=== PATIENT | male | born 1950 | race Caucasian/White ===

== ENCOUNTER 2017-11-17 21:56 | Emergency (ER) | payer MEDICARE ==
--- NOTE | 2017-11-18 07:26 | RAD ---
RIGHT ANKLE 3 VIEWS: DATE: 11/17/17. FINDINGS: There appears to have been an old fracture of the tip of the lateral malleolus that is partially heal ed. No acute fracture was seen. The articular surfaces of the ankle joint seem smooth. Extensive a rterial calcifications are present. IMPRESSION: Old changes, but no acute findings. POS: HOME
== END 2017-11-18 00:35 | disposition home or self-care (01) ==
LOC: BURERS 21:56
DX: M77.51 Other enthesopathy of right foot and ankle (principal); E11.9 Type 2 diabetes mellitus without complications; I10 Essential (primary) hypertension; E03.9 Hypothyroidism, unspecified; N40.0 Benign prostatic hyperplasia without lower urinary tract symptoms; Z79.899 Other long term (current) drug therapy; Z79.4 Long term (current) use of insulin

== ENCOUNTER 2018-03-03 10:12 | Emergency (ER) | payer MEDICARE ==
[2018-03-03] MEDS ORDERED: hydrOXYzine 25 MG TAB ONE (11:01)
[2018-03-03] MEDS ORDERED: Famotidine 20 MG TAB ONE (11:01)
== END 2018-03-03 11:13 | disposition home or self-care (01) ==
LOC: BURERS 10:12
DX: T63.421A Toxic effect of venom of ants, accidental (unintentional), initial encounter (principal); E11.9 Type 2 diabetes mellitus without complications; I10 Essential (primary) hypertension; E03.9 Hypothyroidism, unspecified; N40.0 Benign prostatic hyperplasia without lower urinary tract symptoms; F32.9 Major depressive disorder, single episode, unspecified; Z79.899 Other long term (current) drug therapy; Z79.4 Long term (current) use of insulin
CPT/HCPCS: 99282

== ENCOUNTER 2018-06-18 09:25 | Outpatient (CLI) | payer MEDICARE ==
--- NOTE | 2018-06-18 13:46 | RAD ---
RIGHT KNEE FOUR VIEWS: Date: 06-18-18 FINDINGS: No acute fracture or large joint effusion was seen. There is significant arthritic changes present co nsisting of mild medial joint space narrowing and large osteophytes. At least two of the images raise the question of a small loose body in the joint. Patellofemoral osteophytes are present as well. The re is faint arterial calcification in the nearby vessels. IMPRESSION: Moderate osteoarthritis. Possible small loose body in joint. POS: [facility]
--- NOTE | 2018-06-18 13:47 | RAD ---
LEFT KNEE FOUR VIEWS: Date: 06-18-18 Comparison: Views of the right knee. FINDINGS: While there are some arthritic changes on this side, they are not nearly as profound as the right kne e. Small osteophytes are seen. No fracture or joint effusion was evident. Faint arterial calcificatio ns were seen. IMPRESSION: Mild degenerative change. POS: [facility]
== END 2018-06-18 09:26 | disposition home or self-care (01) ==
LOC: BURRAD 09:25
PROVIDERS: ATTEND Family Medicine
DX: M25.561 Pain in right knee (principal); M25.562 Pain in left knee; M17.0 Bilateral primary osteoarthritis of knee

== ENCOUNTER 2019-05-02 10:18 | Emergency (ER) | payer MEDICARE ==
[2019-05-02 11:06] LABS: #Basophils 0.1 thou/uL (0.0-0.2); #Eosinphils 0.2 thou/uL (0.0-0.7); #Lymphocytes 2.9 thou/uL (1.20-3.40); #Monocytes 0.8 thou/uL (0.11-0.59); #Neutrophils 6.1 thou/uL (1.40-6.50); %Basophils 0.8 % (0.0-1.0); %Lymphocytes 28.3 % (21.0-51.0); %Monocytes 8.3 % (0.0-10.0); %Neutrophils 60.6 % (42.0-75.0); Hemoglobin 12.1 g/dL (14.0-18.0); Mean Corpuscular HGB CONC 32.7 g/dL (32.0-36.0); Mean Corpuscular Hemoglobin 29.9 pg (27.0-31.0); Mean Corpuscular Volume 91.3 fL (78.0-98.0); Mean Platelet Volume 8.2 fL (7.4-10.4); Platelet Count 251 thou/uL (130-400); Red Blood Cell (RBC) Count 4.06 mill/uL (4.70-6.10); White Blood Cell (WBC) Count 10.1 thou/uL (4.8-10.8)
[2019-05-02 11:21] LABS: ALT (SGPT) 23 U/L (8-55); AST (SGOT) 16 U/L (5-34); Albumin 3.9 g/dL (3.4-4.8); Alkaline Phosphatase 69 U/L (40-110); Anion Gap 13 mmol/L (10-20); BUN (Urea Nitrogen) 18 mg/dL (8.4-25.7); Bilirubin, Total 0.3 mg/dL (0.2-1.2); Calc. Creatinine Clearance 0 mL/min (70-130); Calcium 9.8 mg/dL (7.8-10.44); Carbon Dioxide 30 mmol/L (23-31); Chloride 103 mmol/L (98-107); Estimated GFR-MDRD 55; Globulin 3.2 g/dL (2.4-3.5); Glucose 147 mg/dL (83-110); Protein, Total 7.1 g/dL (5.8-8.1); Sodium 142 mmol/L (136-145)
[2019-05-02] MEDS ORDERED: Iopamidol 370 76% 100 ML VIAL ONE (12:53)
[2019-05-02 14:13] LABS: Troponin I 0.013 ng/mL (< 0.028)
--- NOTE | 2019-05-02 14:21 | RAD ---
CHEST 2 VIEWS: Date: 05/02/19 The heart is upper normal to mildly enlarged, but there is no vascular congestion or edema. There are no pleural effusions. The lungs are clear. Degenerative changes are seen at multiple levels of the t horacic spine, somewhat worse in the lower thoracic spine than the upper. IMPRESSION: Borderline heart size, but no acute thoracic findings. POS: HOME
--- NOTE | 2019-05-02 14:32 | CT ---
CT AORTIC DISSECTION WITH CONTRAST: Date: 05/02/[address] of the chest and abdomen through the bifurcation of the aorta was done after a bolus of IV contrast. MIP reconstructions in various planes were then done. CT THORAX: There is no sign of aortic aneurysm, dissection, or other acute aortic change. There is moderate opac ification of the pulmonary arteries that shows no signs of emboli in the larger branches. Dense coron naga artery calcifications are present in both the left and right coronary circulations, but particula rly the left. There is no sign of pericardial effusion. No mediastinal mass or adenopathy of concern was seen. The thickness of the esophageal wall seems mildly increased throughout the possibility of m ild esophagitis is at least entertained. The lungs are clear with no acute infiltrate aside from some minor atelectasis. There are no large effusions. CT ABDOMEN: Abdominal aorta shows no aneurysm, dissection, or other acute change. The celiac, SMA, and HARRY all fi ll appropriately. There is some calcification at the origin of the SMA without obvious impediment of blood flow. Both main renal arteries fill with an accessory renal artery going to the upper pole of t he right kidney. The liver, spleen, pancreas, and adrenal glands are unremarkable in appearance. No stones appreciated in the gallbladder. There is a nonobstructing calculus in the lower pole of the left kidney. The bow el shows no distention or wall thickening. The appendix was seen and it appears normal. Finally, ther e are extensive severe degenerative changes present throughout the patient's spine, worse than the tania mbar region. At the L4-5 level, in particular, there is central canal stenosis and perhaps a disc ost eophyte complex centrally and towards the right. IMPRESSION: 1. No evidence of aortic aneurysm, dissection, or pulmonary embolism. 2. Question of mild esophagitis. 3. Nonobstructing calculus, left kidney. Findings discussed with Dr. Ayoub at 1237 hours on 05/02/19. CODE CR. POS: HOME
== END 2019-05-02 14:39 | disposition home or self-care (01) ==
LOC: BURERS 10:18
DX: K21.0 Gastro-esophageal reflux disease with esophagitis (principal); E11.9 Type 2 diabetes mellitus without complications; I10 Essential (primary) hypertension; R07.89 Other chest pain; N40.0 Benign prostatic hyperplasia without lower urinary tract symptoms; E03.9 Hypothyroidism, unspecified; F32.9 Major depressive disorder, single episode, unspecified; Z79.4 Long term (current) use of insulin; Z79.899 Other long term (current) drug therapy
CPT/HCPCS: 36415; 71046; 71275; 72191; 74175; 80053; 83880; 84484; 85025; 93005; Q9967

== ENCOUNTER 2019-08-11 09:26 | Outpatient (CLI) | payer MEDICARE ==
--- NOTE | 2019-08-11 20:28 | RAD ---
CERVICAL SPINE: 08/11/19 AP, lateral, open mouth and swimmer's views were provided. There is reversal of the normal cervical lordosis which may be due to spasm. No acute fracture or dis location was seen. The disc spaces are normal in height. Prominent osteophytes are seen anteriorly, p articularly at C4 and below. The soft tissues show no thickening and the C1 to dens distance is max l. Incidental finding are carotid artery calcifications in the neck. IMPRESSION: 1. Diffuse cervical degenerative change. 2. Flexion of the neck/straightening of the cervical spine which may be due to muscle spasm. POS: HOME
== END 2019-08-11 09:27 | disposition home or self-care (01) ==
LOC: BURRAD 09:26
PROVIDERS: ATTEND Family Medicine
DX: M54.2 Cervicalgia (principal); M47.812 Spondylosis without myelopathy or radiculopathy, cervical region; M53.82 Other specified dorsopathies, cervical region
CPT/HCPCS: 72040

== ENCOUNTER 2021-06-13 15:30 | Emergency (ER) | payer MEDICARE ==
[2021-06-13 16:31] LABS: #Basophils 0.1 thou/uL (0.0-0.2); #Eosinphils 0.1 thou/uL (0.0-0.7); #Lymphocytes 2.5 thou/uL (1.20-3.40); #Monocytes 1.2 thou/uL (0.11-0.59); #Neutrophils 11.3 thou/uL (1.40-6.50); %Basophils 0.7 % (0.0-1.0); %Eosinophils 0.8 % (0.0-10.0); %Lymphocytes 16.3 % (21.0-51.0); %Monocytes 8.1 % (0.0-10.0); %Neutrophils 74.2 % (42.0-75.0); Hemoglobin 13.2 g/dL (14.0-18.0); Mean Corpuscular HGB CONC 33.5 g/dL (32.0-36.0); Mean Corpuscular Hemoglobin 30.4 pg (27.0-31.0); Mean Corpuscular Volume 90.8 fL (78.0-98.0); Platelet Count 365 thou/uL (130-400); RBC Distribution Width 12.6 % (11.5-14.5); Red Blood Cell (RBC) Count 4.35 mill/uL (4.70-6.10); White Blood Cell (WBC) Count 15.2 thou/uL (4.8-10.8)
[2021-06-13 16:46] LABS: ALT (SGPT) 22 U/L (8-55); AST (SGOT) 15 U/L (5-34); Alkaline Phosphatase 58 U/L (40-110); Anion Gap 16 mmol/L (10-20); BUN (Urea Nitrogen) 31 mg/dL (8.4-25.7); Bilirubin, Total 0.3 mg/dL (0.2-1.2); Calc. Creatinine Clearance 0 mL/min (70-130); Calcium 10.2 mg/dL (7.8-10.44); Carbon Dioxide 31 mmol/L (23-31); Chloride 100 mmol/L (98-107); Globulin 3.4 g/dL (2.4-3.5); Glucose 97 mg/dL (83-110); Potassium 4.6 mmol/L (3.5-5.1); Protein, Total 7.4 g/dL (5.8-8.1); Sodium 142 mmol/L (136-145)
[2021-06-13 17:15] LABS: Bilirubin Negative (Negative); Blood, Urine Negative (Negative); Clarity Clear (Clear); Glucose, Urine (Dipstick) Negative (Negative); Ketone, Urine Trace mg/dL (Negative); Leukocyte Negative (Negative); Nitrite Negative (Negative); Protein, Urine (Dipstick) Trace mg/dL (Neg-Trace); pH, Urine 5.5 (5.0-9.0)
[2021-06-14 08:54] LABS: SARS-CoV-2 PCR by NAA Not Detected (NotDetected)
== END 2021-06-13 17:50 | disposition home or self-care (01) ==
LOC: BURERS 15:30
DX: R53.83 Other fatigue (principal); E86.0 Dehydration; Z20.822 Contact with and (suspected) exposure to COVID-19; E10.9 Type 1 diabetes mellitus without complications; I11.0 Hypertensive heart disease with heart failure; I50.9 Heart failure, unspecified; E03.9 Hypothyroidism, unspecified; Z79.82 Long term (current) use of aspirin; Z79.84 Long term (current) use of oral hypoglycemic drugs; Z79.899 Other long term (current) drug therapy
CPT/HCPCS: 71045; 80053; 81003; 82962; 83605; 83880; 84484; 85025; 87081; 87430; 87804 ×2; 93005; 94760; U0003; U0005; 36416

== ENCOUNTER 2021-06-15 17:39 | Emergency (ER) | payer MEDICARE | END 2021-06-15 18:50 | disposition home or self-care (01) | LOC: BURERS 17:39 | DX: R53.83 Other fatigue (principal); E10.9 Type 1 diabetes mellitus without complications; I11.0 Hypertensive heart disease with heart failure; I50.9 Heart failure, unspecified; E03.9 Hypothyroidism, unspecified | CPT/HCPCS: 99283 ==

== ENCOUNTER 2021-08-09 10:32 | Outpatient (CLI) | payer MEDICARE | END 2021-08-09 10:33 | disposition home or self-care (01) | LOC: BURRAD 10:32 | PROVIDERS: ATTEND Family Medicine | DX: M25.551 Pain in right hip (principal); M25.552 Pain in left hip; M25.561 Pain in right knee; M25.562 Pain in left knee; M17.0 Bilateral primary osteoarthritis of knee; M16.11 Unilateral primary osteoarthritis, right hip ==

== ENCOUNTER 2021-11-03 12:50 | Emergency (ER) | payer MEDICARE ==
[2021-11-03 13:22] LABS: #Basophils 0.1 thou/uL (0.0-0.2); #Eosinphils 0.2 thou/uL (0.0-0.7); #Lymphocytes 2.6 thou/uL (1.20-3.40); #Monocytes 0.7 thou/uL (0.11-0.59); %Basophils 0.6 % (0.0-1.0); %Eosinophils 1.8 % (0.0-10.0); %Lymphocytes 27.4 % (21.0-51.0); %Monocytes 7.6 % (0.0-10.0); %Neutrophils 62.7 % (42.0-75.0); Hemoglobin 12.1 g/dL (14.0-18.0); Mean Corpuscular HGB CONC 33.5 g/dL (32.0-36.0); Mean Corpuscular Hemoglobin 30.9 pg (27.0-31.0); Mean Platelet Volume 8.3 fL (7.4-10.4); Platelet Count 278 thou/uL (130-400); RBC Distribution Width 13.3 % (11.5-14.5); Red Blood Cell (RBC) Count 3.91 mill/uL (4.70-6.10); White Blood Cell (WBC) Count 9.5 thou/uL (4.8-10.8)
[2021-11-03] MEDS ORDERED: cefTRIAXone\\ROCEPHIN 1 GM VIAL ONE (13:23)
[2021-11-03] MEDS ORDERED: Sodium Chloride 0.9% 100 ML ONE (13:23)
[2021-11-03 13:38] LABS: ALT (SGPT) 19 U/L (8-55); AST (SGOT) 14 U/L (5-34); Albumin 3.8 g/dL (3.4-4.8); Alkaline Phosphatase 66 U/L (40-110); Anion Gap 19 mmol/L (10-20); BUN (Urea Nitrogen) 25 mg/dL (8.4-25.7); Bilirubin, Total 0.4 mg/dL (0.2-1.2); Calc. Creatinine Clearance 0 mL/min (70-130); Calcium 9.5 mg/dL (7.8-10.44); Carbon Dioxide 24 mmol/L (23-31); Chloride 103 mmol/L (98-107); Globulin 3.2 g/dL (2.4-3.5); Glucose 172 mg/dL (83-110); Potassium 4.6 mmol/L (3.5-5.1); Sodium 141 mmol/L (136-145)
== END 2021-11-03 14:05 | disposition home or self-care (01) ==
LOC: BURERS 12:50
DX: L03.031 Cellulitis of right toe (principal); E11.9 Type 2 diabetes mellitus without complications; I11.0 Hypertensive heart disease with heart failure; I50.9 Heart failure, unspecified; E03.9 Hypothyroidism, unspecified; Z79.4 Long term (current) use of insulin; Z96.41 Presence of insulin pump (external) (internal)
CPT/HCPCS: 36415; 80053; 83605; 85025; 87040; 96374; J0696; J3490

== ENCOUNTER 2022-03-10 11:10 | Emergency (ER) | payer MEDICARE ==
[2022-03-10] MEDS ORDERED: Furosemide 40 MG TAB ONE (11:33)
[2022-03-10] MEDS ORDERED: Gabapentin 300 MG CAP ONE (11:33)
[2022-03-10 11:46] LABS: #Basophils 0.1 thou/uL (0.0-0.2); #Eosinphils 0.3 thou/uL (0.0-0.7); #Lymphocytes 2.7 thou/uL (1.20-3.40); #Monocytes 0.7 thou/uL (0.11-0.59); #Neutrophils 5.3 thou/uL (1.40-6.50); %Basophils 0.7 % (0.0-1.0); %Eosinophils 3.2 % (0.0-10.0); %Lymphocytes 29.9 % (21.0-51.0); %Monocytes 7.2 % (0.0-10.0); Hemoglobin 12.6 g/dL (14.0-18.0); Mean Corpuscular HGB CONC 33.3 g/dL (32.0-36.0); Mean Corpuscular Hemoglobin 30.8 pg (27.0-31.0); Mean Corpuscular Volume 92.4 fL (78.0-98.0); Platelet Count 274 thou/uL (130-400); RBC Distribution Width 12.6 % (11.5-14.5); Red Blood Cell (RBC) Count 4.08 mill/uL (4.70-6.10)
[2022-03-10 12:04] LABS: ALT (SGPT) 27 U/L (8-55); AST (SGOT) 19 U/L (5-34); Albumin 3.9 g/dL (3.4-4.8); Alkaline Phosphatase 79 U/L (40-110); Anion Gap 12 mmol/L (10-20); BUN (Urea Nitrogen) 13 mg/dL (8.4-25.7); Bilirubin, Total 0.4 mg/dL (0.2-1.2); Calc. Creatinine Clearance 0 mL/min (70-130); Calcium 9.5 mg/dL (7.8-10.44); Carbon Dioxide 27 mmol/L (23-31); Chloride 104 mmol/L (98-107); Estimated GFR 65; Globulin 3.1 g/dL (2.4-3.5); Glucose 202 mg/dL (83-110); Magnesium 2.3 mg/dL (1.6-2.6); Potassium 4.2 mmol/L (3.5-5.1); Sodium 139 mmol/L (136-145)
[2022-03-10] MEDS ORDERED: HYDROcodone/Acetaminophen 10/325 mg Tablet ONE (12:37)
== END 2022-03-10 12:45 | disposition home or self-care (01) ==
LOC: BURERS 11:10
DX: R06.02 Shortness of breath (principal); R05.9 Cough, unspecified; G89.29 Other chronic pain; I13.0 Hypertensive heart and chronic kidney disease with heart failure and stage 1 through stage 4 chronic kidney disease, or unspecified chronic kidney disease; E11.22 Type 2 diabetes mellitus with diabetic chronic kidney disease; N18.9 Chronic kidney disease, unspecified; I50.9 Heart failure, unspecified; E03.9 Hypothyroidism, unspecified; Z79.4 Long term (current) use of insulin; Z79.899 Other long term (current) drug therapy; Z79.82 Long term (current) use of aspirin
CPT/HCPCS: 36415; 71045; 80053; 83735; 83880; 84484; 85025; 93005

== ENCOUNTER 2022-04-07 13:20 | Emergency (ER) | payer MEDICARE ==
[2022-04-07] MEDS ORDERED: Lidocaine 2% PF 5 ML VIAL ONE (13:48)
[2022-04-07] MEDS ORDERED: Bacitracin 1 PK ONE (15:28)
[2022-04-07] MEDS ORDERED: Clindamycin 150 MG CAP ONE (15:35)
== END 2022-04-07 16:03 | disposition home or self-care (01) ==
LOC: BURERS 13:20
DX: S92.524A Nondisplaced fracture of middle phalanx of right lesser toe(s), initial encounter for closed fracture (principal); S91.114A Laceration without foreign body of right lesser toe(s) without damage to nail, initial encounter; X58.XXXA Exposure to other specified factors, initial encounter
CPT/HCPCS: 12001; J2001

== ENCOUNTER 2022-04-14 11:02 | Inpatient (IN) | payer MEDICARE ==
[2022-04-14 11:29] LABS: Hemoglobin 12.1 g/dL (14.0-18.0); Mean Corpuscular Hemoglobin 30.1 pg (27.0-31.0); Mean Corpuscular Volume 90.2 fl (78.0-98.0); Red Blood Cell (RBC) Count 4.02 mill/uL (4.70-6.10); White Blood Cell (WBC) Count 9.7 thou/uL (4.8-10.8)
[2022-04-14 11:30] LABS: #Basophils 0.1 thou/uL (0.0-0.2); #Eosinphils 0.3 thou/uL (0.0-0.7); #Lymphocytes 2.3 thou/uL (1.20-3.40); #Monocytes 0.6 thou/uL (0.11-0.59); #Neutrophils 6.4 thou/uL (1.40-6.50); %Basophils 0.8 % (0.0-1.0); %Lymphocytes 23.3 % (21.0-51.0); %Monocytes 6.5 % (0.0-10.0); %Neutrophils 66.4 % (42.0-75.0); Mean Corpuscular HGB CONC 33.3 g/dL (32.0-36.0); Mean Platelet Volume 7.8 fL (7.4-10.4); Platelet Count 256 thou/uL (130-400); RBC Distribution Width 12.2 % (11.5-14.5)
[2022-04-14 11:56] LABS: ALT (SGPT) 19 U/L (8-55); AST (SGOT) 15 U/L (5-34); Albumin 3.7 g/dL (3.4-4.8); Alkaline Phosphatase 71 U/L (40-110); Anion Gap 15 mmol/L (10-20); BUN (Urea Nitrogen) 20 mg/dL (8.4-25.7); Bilirubin, Total 0.4 mg/dL (0.2-1.2); Calc. Creatinine Clearance 0 mL/min (70-130); Calcium 9.5 mg/dL (7.8-10.44); Carbon Dioxide 25 mmol/L (23-31); Chloride 104 mmol/L (98-107); Estimated GFR 67; Globulin 3.2 g/dL (2.4-3.5); Glucose 199 mg/dL (83-110); Potassium 4.3 mmol/L (3.5-5.1); Protein, Total 6.9 g/dL (5.8-8.1); Sodium 140 mmol/L (136-145)
[2022-04-14] MEDS ORDERED: Piperacillin/Tazobactam 4.5 GM VIAL ONE (12:29)
[2022-04-14] MEDS ORDERED: Sodium Chloride 0.9% 100 ML ONE (12:30)
[2022-04-14] MEDS ORDERED: Acetaminophen 325 MG TAB PO PRN (15:30)
[2022-04-14] MEDS ORDERED: Ondansetron ODT 4 MG TAB SL PRN (15:30)
[2022-04-14] MEDS ORDERED: Ondansetron PF 4 MG/2 ML Vial IVP PRN (15:30)
[2022-04-14 16:03] VITALS: BMI 36.0
[2022-04-14] MEDS ORDERED: HYDROcodone/Acetaminophen 5/325 mg Tablet PO PRN (16:38)
[2022-04-14] MEDS ORDERED: INSULIN PUMP SQ SCH (17:00)
[2022-04-14] MEDS ORDERED: Piperacillin/Tazobactam 3.375 GM in Sodium Chloride 0.9% 100 ML IVPB SCH (17:00)
[2022-04-14] MEDS: Furosemide 40 MG TAB PO SCH (20:06)
[2022-04-15] MEDS: Levothyroxine Sodium 88 MCG TAB PO SCH (05:37)
[2022-04-15] MEDS ORDERED: Ondansetron ODT 4 MG TAB PO PRN (07:19)
[2022-04-15] MEDS ORDERED: Acetaminophen 325 MG TAB PO PRN (07:19)
[2022-04-15] MEDS: Piperacillin/Tazobactam 3.375 GM in Sodium Chloride 0.9% 100 ML IVPB SCH ×2 (08:38→15:41)
[2022-04-15] MEDS: Atorvastatin Calcium 40 MG TAB PO SCH (08:38)
[2022-04-15] MEDS: Magnesium Oxide 400 MG TAB PO SCH (08:39)
[2022-04-15] MEDS: Tamsulosin HCl 0.4 MG CAP PO SCH (08:39)
[2022-04-15] MEDS: Amlodipine 10 MG TAB PO SCH (08:39)
[2022-04-15] MEDS: Finasteride 5 MG TAB PO SCH (08:39)
[2022-04-15] MEDS: Saccharomyces boulardii 250 MG CAP PO SCH (08:39)
[2022-04-15] MEDS: Lisinopril 20 MG TAB PO SCH (08:39)
[2022-04-15] MEDS: Aspirin 81 mg Enteric Coated Tablet PO SCH (08:39)
[2022-04-15] MEDS: Cyanocobalamin (Vitamin B-12) 1,000 MCG TAB PO SCH (08:39)
[2022-04-15] MEDS: Furosemide 40 MG TAB PO SCH ×2 (08:39→21:01)
[2022-04-15] MEDS: Enoxaparin Sodium 40 MG/0.4 ML SYRINGE SC SCH (08:40)
[2022-04-15] MEDS ORDERED: Bacitracin 1 PK TOP PRN (11:53)
[2022-04-15] MEDS ORDERED: INSULIN PUMP NOVOLOG SC SCH ×2 (12:00)
[2022-04-15] MEDS ORDERED: Dextrose 5% in Water 1,000 ML IV PRN (15:45)
[2022-04-15] MEDS ORDERED: Dextrose 50% Abboject 50 ML SYRINGE IVP PRN (15:45)
[2022-04-16] MEDS: Piperacillin/Tazobactam 3.375 GM in Sodium Chloride 0.9% 100 ML IVPB SCH ×4 (00:11→23:37)
[2022-04-16] MEDS: Levothyroxine Sodium 88 MCG TAB PO SCH (06:16)
[2022-04-16] MEDS: Lisinopril 20 MG TAB PO SCH (09:35)
[2022-04-16] MEDS: Atorvastatin Calcium 40 MG TAB PO SCH (09:36)
[2022-04-16] MEDS: Cyanocobalamin (Vitamin B-12) 1,000 MCG TAB PO SCH (09:36)
[2022-04-16] MEDS: Magnesium Oxide 400 MG TAB PO SCH (09:36)
[2022-04-16] MEDS: Saccharomyces boulardii 250 MG CAP PO SCH (09:36)
[2022-04-16] MEDS: Furosemide 40 MG TAB PO SCH ×2 (09:36→20:53)
[2022-04-16] MEDS: Finasteride 5 MG TAB PO SCH (09:37)
[2022-04-16] MEDS: Aspirin 81 mg Enteric Coated Tablet PO SCH (09:37)
[2022-04-16] MEDS: Tamsulosin HCl 0.4 MG CAP PO SCH (09:37)
[2022-04-16] MEDS: Amlodipine 10 MG TAB PO SCH (09:37)
[2022-04-16] MEDS: Enoxaparin Sodium 40 MG/0.4 ML SYRINGE SC SCH (09:37)
[2022-04-17] MEDS: Levothyroxine Sodium 88 MCG TAB PO SCH (05:33)
[2022-04-17 06:01] VITALS: TEMP 97.9
[2022-04-17] MEDS ORDERED: Furosemide 40 MG TAB PO SCH (08:00)
[2022-04-17] MEDS: Aspirin 81 mg Enteric Coated Tablet PO SCH (08:11)
[2022-04-17] MEDS: Atorvastatin Calcium 40 MG TAB PO SCH (08:11)
[2022-04-17] MEDS: Cyanocobalamin (Vitamin B-12) 1,000 MCG TAB PO SCH (08:11)
[2022-04-17] MEDS: Enoxaparin Sodium 40 MG/0.4 ML SYRINGE SC SCH (08:11)
[2022-04-17] MEDS: Finasteride 5 MG TAB PO SCH (08:11)
[2022-04-17] MEDS: Saccharomyces boulardii 250 MG CAP PO SCH (08:12)
[2022-04-17] MEDS: Amlodipine 10 MG TAB PO SCH (08:12)
[2022-04-17] MEDS: Lisinopril 20 MG TAB PO SCH (08:12)
[2022-04-17] MEDS: Piperacillin/Tazobactam 3.375 GM in Sodium Chloride 0.9% 100 ML IVPB SCH (08:12)
[2022-04-17] MEDS: Magnesium Oxide 400 MG TAB PO SCH (08:12)
[2022-04-17] MEDS: Tamsulosin HCl 0.4 MG CAP PO SCH (08:12)
[2022-04-17 08:13] VITALS: BP 147/72
== END 2022-04-17 14:05 | disposition swing bed (61) | DRG 639 ==
LOC: BURERS 11:02 → BURMED 12:25
PROVIDERS: ADMIT Family Medicine; ATTEND Family Medicine
DX: E11.628 Type 2 diabetes mellitus with other skin complications (principal); L03.031 Cellulitis of right toe; Z79.4 Long term (current) use of insulin; Z96.41 Presence of insulin pump (external) (internal); E78.5 Hyperlipidemia, unspecified; E03.9 Hypothyroidism, unspecified; N40.0 Benign prostatic hyperplasia without lower urinary tract symptoms; S91.119A Laceration without foreign body of unspecified toe without damage to nail, initial encounter; G89.29 Other chronic pain; M54.9 Dorsalgia, unspecified; Z91.09 Other allergy status, other than to drugs and biological substances; M65.331 Trigger finger, right middle finger; E11.40 Type 2 diabetes mellitus with diabetic neuropathy, unspecified; Z20.822 Contact with and (suspected) exposure to COVID-19; I11.0 Hypertensive heart disease with heart failure; I50.9 Heart failure, unspecified; E11.51 Type 2 diabetes mellitus with diabetic peripheral angiopathy without gangrene
CPT/HCPCS: 36415; 36416; 80053; 83605; 85025; 87040; 90471; 90732; 96365; 97602; G0009; J1650; J2543; J3490; U0003; U0005

== ENCOUNTER 2022-04-17 14:05 | Inpatient (IN) | payer MEDICARE ==
[2022-04-17 15:11] VITALS: BMI 36.0
[2022-04-17] MEDS ORDERED: Dextrose 50% Abboject 50 ML SYRINGE SLOW IVP PRN (15:44)
[2022-04-17] MEDS ORDERED: Ondansetron ODT 4 MG TAB PO PRN (15:44)
[2022-04-17] MEDS ORDERED: Bacitracin 1 PK TOP PRN (15:44)
[2022-04-17] MEDS ORDERED: HYDROcodone/Acetaminophen 5/325 mg Tablet PO PRN (15:44)
[2022-04-17] MEDS ORDERED: Acetaminophen 325 MG TAB PO PRN (15:44)
[2022-04-17] MEDS ORDERED: Non-Formulary Item 1 EACH (Sodium Chloride 0.9% [Normal Saline 0.9%] 100 ML Bag) IVPB SCH (16:00)
[2022-04-17] MEDS ORDERED: INSULIN PUMP SQ SCH (16:00)
[2022-04-17] MEDS ORDERED: Piperacillin/Tazobactam 3.375 GM VIAL IVPB SCH (16:00)
[2022-04-17] MEDS: Piperacillin/Tazobactam 3.375 GM in Sodium Chloride 0.9% 100 ML IVPB SCH (16:59)
[2022-04-17] MEDS ORDERED: Furosemide 40 MG TAB PO SCH ×2 (19:15→21:00)
[2022-04-18] MEDS: Piperacillin/Tazobactam 3.375 GM in Sodium Chloride 0.9% 100 ML IVPB SCH ×4 (00:01→23:15)
[2022-04-18] MEDS: Levothyroxine Sodium 88 MCG TAB PO SCH (06:08)
[2022-04-18] MEDS: INSULIN PUMP NOVOLOG SC SCH (06:40)
[2022-04-18] MEDS: Cyanocobalamin (Vitamin B-12) 1,000 MCG TAB PO SCH (11:13)
[2022-04-18] MEDS: Lisinopril 20 MG TAB PO SCH (11:14)
[2022-04-18] MEDS: Magnesium Oxide 400 MG TAB PO SCH (11:15)
[2022-04-18] MEDS: Aspirin 81 mg Enteric Coated Tablet PO SCH (11:15)
[2022-04-18] MEDS: Tamsulosin HCl 0.4 MG CAP PO SCH (11:15)
[2022-04-18] MEDS: Saccharomyces boulardii 250 MG CAP PO SCH (11:15)
[2022-04-18] MEDS: Finasteride 5 MG TAB PO SCH (11:15)
[2022-04-18] MEDS: Amlodipine 10 MG TAB PO SCH (11:15)
[2022-04-18] MEDS: Furosemide 40 MG TAB PO SCH ×2 (11:16→15:38)
[2022-04-18] MEDS: Enoxaparin Sodium 40 MG/0.4 ML SYRINGE SC SCH (11:16)
[2022-04-18] MEDS: Atorvastatin Calcium 40 MG TAB PO SCH (20:30)
[2022-04-19] MEDS: Levothyroxine Sodium 88 MCG TAB PO SCH (06:13)
[2022-04-19] MEDS: Piperacillin/Tazobactam 3.375 GM in Sodium Chloride 0.9% 100 ML IVPB SCH ×2 (08:48→15:50)
[2022-04-19] MEDS: Cyanocobalamin (Vitamin B-12) 1,000 MCG TAB PO SCH (08:49)
[2022-04-19] MEDS: Saccharomyces boulardii 250 MG CAP PO SCH (08:50)
[2022-04-19] MEDS: Lisinopril 20 MG TAB PO SCH (08:50)
[2022-04-19] MEDS: Furosemide 40 MG TAB PO SCH ×2 (08:50→13:46)
[2022-04-19] MEDS: Amlodipine 10 MG TAB PO SCH (08:50)
[2022-04-19] MEDS: Aspirin 81 mg Enteric Coated Tablet PO SCH (08:50)
[2022-04-19] MEDS: Magnesium Oxide 400 MG TAB PO SCH (08:50)
[2022-04-19] MEDS: Enoxaparin Sodium 40 MG/0.4 ML SYRINGE SC SCH (08:51)
[2022-04-19] MEDS: Finasteride 5 MG TAB PO SCH (08:51)
[2022-04-19] MEDS: Tamsulosin HCl 0.4 MG CAP PO SCH (08:51)
[2022-04-19] MEDS: INSULIN PUMP NOVOLOG SC SCH (15:54)
[2022-04-19] MEDS: Atorvastatin Calcium 40 MG TAB PO SCH (20:40)
[2022-04-20] MEDS: Piperacillin/Tazobactam 3.375 GM in Sodium Chloride 0.9% 100 ML IVPB SCH ×4 (00:46→23:51)
[2022-04-20] MEDS: Levothyroxine Sodium 88 MCG TAB PO SCH (05:12)
[2022-04-20] MEDS: Magnesium Oxide 400 MG TAB PO SCH (08:04)
[2022-04-20] MEDS: Saccharomyces boulardii 250 MG CAP PO SCH (08:04)
[2022-04-20] MEDS: Amlodipine 10 MG TAB PO SCH (08:04)
[2022-04-20] MEDS: Finasteride 5 MG TAB PO SCH (08:04)
[2022-04-20] MEDS: Cyanocobalamin (Vitamin B-12) 1,000 MCG TAB PO SCH (08:04)
[2022-04-20] MEDS: Aspirin 81 mg Enteric Coated Tablet PO SCH (08:04)
[2022-04-20] MEDS: Furosemide 40 MG TAB PO SCH ×2 (08:04→14:12)
[2022-04-20] MEDS: Lisinopril 20 MG TAB PO SCH (08:05)
[2022-04-20] MEDS: Tamsulosin HCl 0.4 MG CAP PO SCH (08:05)
[2022-04-20] MEDS: Enoxaparin Sodium 40 MG/0.4 ML SYRINGE SC SCH (08:05)
[2022-04-20] MEDS: Atorvastatin Calcium 40 MG TAB PO SCH (20:13)
[2022-04-21] MEDS: Levothyroxine Sodium 88 MCG TAB PO SCH (05:40)
[2022-04-21 06:01] VITALS: TEMP 98.3
[2022-04-21] MEDS: Cyanocobalamin (Vitamin B-12) 1,000 MCG TAB PO SCH (08:06)
[2022-04-21] MEDS: Tamsulosin HCl 0.4 MG CAP PO SCH (08:07)
[2022-04-21] MEDS: Finasteride 5 MG TAB PO SCH (08:07)
[2022-04-21] MEDS: Lisinopril 20 MG TAB PO SCH (08:07)
[2022-04-21 08:08] VITALS: BP 132/68
[2022-04-21] MEDS: Saccharomyces boulardii 250 MG CAP PO SCH (08:08)
[2022-04-21] MEDS: Amlodipine 10 MG TAB PO SCH (08:08)
[2022-04-21] MEDS: Magnesium Oxide 400 MG TAB PO SCH (08:08)
[2022-04-21] MEDS: Furosemide 40 MG TAB PO SCH (08:08)
[2022-04-21] MEDS: Aspirin 81 mg Enteric Coated Tablet PO SCH (08:08)
[2022-04-21] MEDS: Piperacillin/Tazobactam 3.375 GM in Sodium Chloride 0.9% 100 ML IVPB SCH (08:14)
[2022-04-21] MEDS: Enoxaparin Sodium 40 MG/0.4 ML SYRINGE SC SCH (08:18)
== END 2022-04-21 10:00 | disposition home or self-care (01) | DRG 639 ==
LOC: BURMED 14:05
PROVIDERS: ADMIT Family Medicine; ATTEND Family Medicine
PROC: 8E0YXY8 Suture Removal from Lower Extremity (ICD-10-PCS; principal; 2022-04-21)
DX: E11.628 Type 2 diabetes mellitus with other skin complications (principal); L03.031 Cellulitis of right toe; I10 Essential (primary) hypertension; E78.5 Hyperlipidemia, unspecified; E03.9 Hypothyroidism, unspecified; N40.0 Benign prostatic hyperplasia without lower urinary tract symptoms; Z79.4 Long term (current) use of insulin; Z79.890 Hormone replacement therapy; Z79.899 Other long term (current) drug therapy; Z79.82 Long term (current) use of aspirin; Z91.048 Other nonmedicinal substance allergy status
CPT/HCPCS: 36416; J1650; J2543; J3490

== ENCOUNTER 2023-10-07 14:01 | Outpatient (CLI) | payer MEDICARE | END 2023-10-07 14:02 | disposition home or self-care (01) | LOC: BURRAD 14:01 | PROVIDERS: ATTEND Neurological Surgery | DX: S22.089A Unspecified fracture of T11-T12 vertebra, initial encounter for closed fracture (principal); S32.019A Unspecified fracture of first lumbar vertebra, initial encounter for closed fracture; M47.814 Spondylosis without myelopathy or radiculopathy, thoracic region | CPT/HCPCS: 72072 ==

== ENCOUNTER 2023-11-10 13:16 | Outpatient (CLI) | payer MEDICARE | END 2023-11-10 13:17 | disposition home or self-care (01) | LOC: BURRAD 13:16 | PROVIDERS: ATTEND Physician Assistant Surgical | DX: S22.008A Other fracture of unspecified thoracic vertebra, initial encounter for closed fracture (principal) | CPT/HCPCS: 72070 ==

== ENCOUNTER 2023-11-21 16:37 | Emergency (ER) | payer MEDICARE ==
[2023-11-21 17:45] LABS: #Basophils 0.1 thou/uL (0.0-0.2); #Eosinphils 0.2 thou/uL (0.0-0.7); #Lymphocytes 2.1 thou/uL (1.20-3.40); #Monocytes 0.8 thou/uL (0.11-0.59); #Neutrophils 5.8 thou/uL (1.40-6.50); %Basophils 0.6 % (0.0-1.0); %Eosinophils 2.1 % (0.0-10.0); %Lymphocytes 23.6 % (21.0-51.0); %Monocytes 8.8 % (0.0-10.0); Hematocrit 30.4 % (42.0-52.0); Hemoglobin 9.8 g/dL (14.0-18.0); Mean Corpuscular HGB CONC 32.1 g/dL (32.0-36.0); Mean Corpuscular Hemoglobin 28.4 pg (27.0-31.0); Mean Corpuscular Volume 88.6 fl (78.0-98.0); Platelet Count 238 10x3/uL (130-400); RBC Distribution Width 14.7 % (11.5-14.5); Red Blood Cell (RBC) Count 3.43 mill/uL (4.70-6.10)
[2023-11-21] MEDS ORDERED: Furosemide 40 MG (4 mL) VIAL ONE (18:01)
[2023-11-21 18:04] LABS: ALT (SGPT) 25 U/L (8-55); AST (SGOT) 14 U/L (5-34); Albumin 3.7 g/dL (3.4-4.8); Alkaline Phosphatase 66 U/L (40-110); Anion Gap 14 mmol/L (10-20); BUN (Urea Nitrogen) 29 mg/dL (8.4-25.7); Bilirubin, Total 0.3 mg/dL (0.2-1.2); Calc. Creatinine Clearance 0 mL/min (70-130); Calcium 8.9 mg/dL (7.8-10.44); Carbon Dioxide 25 mmol/L (23-31); Chloride 107 mmol/L (98-107); Estimated GFR 50; Globulin 2.9 g/dL (2.4-3.5); Glucose 145 mg/dL (83-110); Potassium 4.3 mmol/L (3.5-5.1); Protein, Total 6.6 g/dL (5.8-8.1); Sodium 142 mmol/L (136-145)
[2023-11-21 18:09] LABS: Critical Call Chem Troponin I NUR.KAP1@1808; Troponin I 0.386 ng/mL (< 0.028)
== END 2023-11-21 21:26 | disposition short-term general hospital (02) ==
LOC: BURERS 16:37
DX: I21.4 Non-ST elevation (NSTEMI) myocardial infarction (principal); R60.0 Localized edema; I11.0 Hypertensive heart disease with heart failure; I50.9 Heart failure, unspecified; E11.51 Type 2 diabetes mellitus with diabetic peripheral angiopathy without gangrene; E03.9 Hypothyroidism, unspecified; Z79.4 Long term (current) use of insulin; Z79.82 Long term (current) use of aspirin; Z79.899 Other long term (current) drug therapy
CPT/HCPCS: 36415; 71045; 80053; 83880; 84484; 85025; 85379; 93005; 96374; J1940

== ENCOUNTER 2025-02-25 08:37 | Emergency (ER) | payer MEDICARE ==
[2025-02-25] MEDS ORDERED: Ketorolac Tromethamine 30 MG (1 mL) VIAL ONE (09:31)
[2025-02-25] MEDS ORDERED: Orphenadrine Citrate 60 MG/2 ML VIAL ONE (09:31)
[2025-02-25 09:34] LABS: Hematocrit 34.0 % (42.0-52.0); Hemoglobin 12.2 g/dL (14.0-18.0); Mean Corpuscular Hemoglobin 30.6 pg (27.0-31.0); Mean Corpuscular Volume 85.2 fl (78.0-98.0); Platelet Count 238 10x3/uL (130-400); Red Blood Cell (RBC) Count 3.99 mill/uL (4.70-6.10); White Blood Cell (WBC) Count 9.5 10x3/uL (4.8-10.8)
[2025-02-25 09:36] LABS: ALT (SGPT) 17 U/L (Less than 45); AST (SGOT) 22 U/L (11-34); Albumin 3.6 g/dL (3.1-4.5); Alkaline Phosphatase 69 U/L (40-110); Anion Gap 17 mmol/L (10-20); BUN (Urea Nitrogen) 28 mg/dL (8.4-25.7); Bilirubin, Total 0.4 mg/dL (0.3-1.2); CK (CPK) 92 U/L (30-200); Calc. Creatinine Clearance 0 mL/min (70-130); Calcium 9.5 mg/dL (7.8-10.44); Carbon Dioxide 25 mmol/L (23-31); Chloride 105 mmol/L (98-107); Globulin 3.5 g/dL (2.4-3.5); Glucose 113 mg/dL (83-110); Magnesium 1.7 mg/dL (1.6-2.6); Potassium 4.4 mmol/L (3.5-5.1); Sodium 143 mmol/L (136-145); Troponin I 0.025 ng/mL (< 0.028)
[2025-02-25 09:57] LABS: MDiff Complete? YES
== END 2025-02-25 13:00 | disposition home or self-care (01) ==
LOC: BURERS 08:37
DX: S29.011A Strain of muscle and tendon of front wall of thorax, initial encounter (principal); E86.0 Dehydration; I11.0 Hypertensive heart disease with heart failure; E10.9 Type 1 diabetes mellitus without complications; E03.9 Hypothyroidism, unspecified; Z95.5 Presence of coronary angioplasty implant and graft; Z79.899 Other long term (current) drug therapy; Z79.82 Long term (current) use of aspirin; X58.XXXA Exposure to other specified factors, initial encounter
CPT/HCPCS: 71045; 80053; 82550; 83735; 83880; 84484; 85025; 85379; 93005; 96374; 96375; J1885; J2360; J2919